=== PATIENT | female | born 1955 | race Caucasian/White ===

== ENCOUNTER → 2018-08-26 | Outpatient (CLI) | payer SELFPAY ==
[~2018-08-26] MED LIST: CEFD300 PO; SACC250C PO
[2018-08-26 17:07] LABS: BASOPHILS ABSOLUTE AUTO 0.04 K/mm3 (0.00-0.23); BASOPHILS PERCENT AUTO 1 % (0-2); EOSINOPHILS ABSOLUTE AUTO 0.21 K/mm3 (0.00-0.68); EOSINOPHILS PERCENT AUTO 3 % (0-6); Hematocrit 41.2 % (33.0-51.0); Hemoglobin 13.9 g/dL (11.5-16.0); IMMATURE GRAN ABSOLUTE AUTO 0.02 K/mm3 (0.00-0.10); IMMATURE GRAN PERCENT AUTO 0 % (0-1); LYMPHOCYTES ABSOLUTE AUTO 2.71 K/mm3 (0.84-5.20); LYMPHOCYTES PERCENT AUTO 43 % (21-46); MONOCYTES ABSOLUTE AUTO 0.51 K/mm3 (0.16-1.47); MONOCYTES PERCENT AUTO 8 % (4-13); Mean Corpuscular HGB 31.8 pg (26.0-34.0); Mean Corpuscular HGB Conc 33.7 g/dL (31.5-36.5); Mean Corpuscular Volume 94 fL (80-100); Mean Platelet Volume 13.1 fL (9.1-12.4); NEUTROPHILS ABSOLUTE AUTO 2.83 K/mm3 (1.96-9.15); NEUTROPHILS PERCENT AUTO 45 % (41-73); Platelet Count 61 K/mm3 (150-400); RDW Coefficient Variation 13.5 % (11.7-14.2); Red Blood Cell Count 4.37 M/mm3 (3.80-5.20); White Blood Cell Count 6.32 K/mm3 (4.00-11.30)
[2018-08-26 17:19] LABS: Anion Gap 7 mmol/L (6-16); Blood Urea Nitrogen 9 mg/dL (8-24); Bun/Creatinine Ratio 10.3 (12.0-20.0); CO2, Blood 31 mmol/L (21-32); Calcium, Blood 8.6 mg/dL (8.5-10.1); Chloride, Blood 101 mmol/L (98-108); Creatinine, Blood 0.87 mg/dL (0.40-1.00); Glomerular Filtration Rate >60 (60-); Glucose, Blood 145 mg/dL (70-99); Potassium, Blood 3.3 mmol/L (3.5-5.5); Sodium, Blood 139 mmol/L (136-145)
[2018-08-26 17:23] LABS: Troponin I <0.015 ng/mL (0.000-0.040)
== END | disposition home or self-care (01) ==
LOC: LAB SHORT 17:00 → LAB EV 17:00
PROVIDERS: Physician Assistant Surgical
DX: R53.83 Other fatigue (principal)
CPT/HCPCS: 80048; 84484; 85025

== ENCOUNTER 2018-10-02 22:42 | Inpatient (IN) | payer SELFPAY ==
[~2018-10-02] VITALS: Ht 175.3 cm; Wt 126.0 kg
[2018-10-02 23:14] LABS: BASOPHILS ABSOLUTE AUTO 0.05 K/mm3 (0.00-0.23); BASOPHILS PERCENT AUTO 0 % (0-2); EOSINOPHILS ABSOLUTE AUTO 0.16 K/mm3 (0.00-0.68); EOSINOPHILS PERCENT AUTO 1 % (0-6); Hematocrit 31.4 % (33.0-51.0); Hemoglobin 9.8 g/dL (11.5-16.0); IMMATURE GRAN ABSOLUTE AUTO 0.18 K/mm3 (0.00-0.10); IMMATURE GRAN PERCENT AUTO 2 % (0-1); LYMPHOCYTES ABSOLUTE AUTO 2.66 K/mm3 (0.84-5.20); LYMPHOCYTES PERCENT AUTO 22 % (21-46); MONOCYTES ABSOLUTE AUTO 0.95 K/mm3 (0.16-1.47); MONOCYTES PERCENT AUTO 8 % (4-13); Mean Corpuscular HGB 31.8 pg (26.0-34.0); Mean Corpuscular HGB Conc 31.2 g/dL (31.5-36.5); Mean Corpuscular Volume 102 fL (80-100); Mean Platelet Volume 12.4 fL (9.1-12.4); NEUTROPHILS ABSOLUTE AUTO 8.09 K/mm3 (1.96-9.15); NEUTROPHILS PERCENT AUTO 67 % (41-73); Platelet Count 81 K/mm3 (150-400); RDW Coefficient Variation 14.3 % (11.7-14.2); RDW Standard Deviation 53.4 fL (35.1-46.3); Red Blood Cell Count 3.08 M/mm3 (3.80-5.20); White Blood Cell Count 12.09 K/mm3 (4.00-11.30)
[2018-10-02 23:29] LABS: International Normalized Ratio 1.42; Prothrombin Time Results 14.6 Sec (9.7-11.5)
[2018-10-02 23:32] LABS: Alanine Aminotransfer (ALT/SGP 20 U/L (12-78); Albumin, Blood 1.9 g/dL (3.4-5.0); Albumin/Globulin Ratio 0.6 (0.8-1.8); Alk Phos 78 U/L (50-136); Anion Gap 7 mmol/L (6-16); Aspartate Aminotrans (AST/SGOT 39 U/L (12-37); Bilirubin, Total 1.6 mg/dL (0.1-1.0); Blood Urea Nitrogen 9 mg/dL (8-24); Bun/Creatinine Ratio 13.3 (12.0-20.0); CO2, Blood 29 mmol/L (21-32); Calcium, Blood 7.2 mg/dL (8.5-10.1); Chloride, Blood 107 mmol/L (98-108); Creatinine, Blood 0.68 mg/dL (0.40-1.00); Globulin, Blood 3.3 g/dL (2.2-4.0); Glomerular Filtration Rate >60 (60-); Glucose, Blood 162 mg/dL (70-99); Potassium, Blood 4.6 mmol/L (3.5-5.5); Sodium, Blood 143 mmol/L (136-145); Total Protein, Blood 5.2 g/dL (6.4-8.2)
[2018-10-03] MEDS ORDERED: Prilosec Otc20 MG PO (01:01)
--- NOTE | 2018-10-03 04:55 | NUR ---
unsure where blood was coming from, placed two hats in comode, front was macho urine, back dark red/black 200cc
[2018-10-03 05:04] LABS: BASOPHILS ABSOLUTE AUTO 0.03 K/mm3 (0.00-0.23); BASOPHILS PERCENT AUTO 0 % (0-2); EOSINOPHILS ABSOLUTE AUTO 0.03 K/mm3 (0.00-0.68); EOSINOPHILS PERCENT AUTO 0 % (0-6); Hematocrit 27.5 % (33.0-51.0); Hemoglobin 8.6 g/dL (11.5-16.0); IMMATURE GRAN ABSOLUTE AUTO 0.14 K/mm3 (0.00-0.10); IMMATURE GRAN PERCENT AUTO 1 % (0-1); LYMPHOCYTES ABSOLUTE AUTO 1.64 K/mm3 (0.84-5.20); LYMPHOCYTES PERCENT AUTO 17 % (21-46); MONOCYTES ABSOLUTE AUTO 0.65 K/mm3 (0.16-1.47); MONOCYTES PERCENT AUTO 7 % (4-13); Mean Corpuscular HGB 31.9 pg (26.0-34.0); Mean Corpuscular HGB Conc 31.3 g/dL (31.5-36.5); Mean Corpuscular Volume 102 fL (80-100); Mean Platelet Volume 12.8 fL (9.1-12.4); NEUTROPHILS ABSOLUTE AUTO 7.22 K/mm3 (1.96-9.15); NEUTROPHILS PERCENT AUTO 74 % (41-73); Platelet Count 57 K/mm3 (150-400); RDW Coefficient Variation 14.4 % (11.7-14.2); RDW Standard Deviation 53.4 fL (35.1-46.3); White Blood Cell Count 9.71 K/mm3 (4.00-11.30)
--- NOTE | 2018-10-03 07:03 | NUR ---
walking rounds with day shift nurse, call light in reach, a+o, able to make needs known, room air, saline locked, able to transfer to bathroom with standby assist, two mostly bloody stools, states she is feeling weak, checked vitials
--- NOTE | 2018-10-03 07:52 | NUR ---
ASSUMED CARE OF PT- BEDSIDE REPORT COMPLETE WITH MIGUEL ANGEL HECK. PER RPOET PT IS 1 ASSIST TO THE BATHROOM. PT HAS A GI BLEED. GI CONSULT CALLED PER REPORT FROM NIGHT RN. PT ALERT AND ORIENTED. SPOKE TO PT AFTER REPORT AND SHE REPORTS FREQUENT FALLS AT HOME STATED HER LEFT ELBOW HAS BEEN PAINFUL SINCE SHE HAD A FALL AT HOME. PT HAS TWO AC IVS BOTH PATENT ONE SL AND ONE RUNNING NS CURRENTLY.
--- NOTE | 2018-10-03 08:04 | NUR ---
PT HAD A BM, PER REPORT FROM MOTEL MANAGER STOOL WAS BLACK AND LOOKED LIKE COFFEE GROUNDS.
--- NOTE | 2018-10-03 12:16 | NUR ---
GI DOCTOR IN TO SEE THE PT. STARTING PROTONIX AND SANDOSTATIN DRIPS. PT ALREADY HAS 2 IV'S. PT TO REMAIN NPO AT THIS TIME.
[2018-10-03 14:00] LABS: Hematocrit 29.8 % (33.0-51.0); Hemoglobin 9.2 g/dL (11.5-16.0)
[2018-10-03 15:47] LABS: Influenza A Negative (NEGATIVE); Influenza B Negative (NEGATIVE)
[2018-10-03 16:14] LABS: Hematocrit 26.6 % (33.0-51.0); Hemoglobin 8.7 g/dL (11.5-16.0)
--- NOTE | 2018-10-03 17:25 | NUR ---
TRANSFER NOTE- PT TRANSFERED TO PCU AFTER GOING TO DAY SURGERY. DAY SURGERY RN CALLED AND STATED PT NOT STABLE TO GO THROUGH PROCEDURE AT THIS TIME. DAY SURGERY RETURNED PT TO MEDICAL FLOOR, NOTIFIED OF THE ISSUES AND TRANSFER ORDER RECIEVED. CALLED REPORT TO MIGUEL ANGEL RIBEIRO IN PCU. OCTREOTIDE, LEVOFLOXACIN, PROTONIX AND IVF ALL RUNNING. PT TAKEN DOWN BY RN AND FIBREGLASS GUN HAND, FLU SWAB COMPLETE PRIOR TO TRANSFER. PT ALERT BUT BECOMING FORGETFUL AT THE TIME OF TRANSFER. LAST VITALS SHOW O2 SATS IN THE HIGH 80'S, PLACED PT ON 2L O2 NC, O2 SATS 96% 30 MINUTES AFTER O2 PLACED. PT STATED THE O2 MADE HER FEEL BETTER. CHEST XRAY DONE PRIOR TO TRANSFER. PT SO PRESENT FOR TRANSFER AND IS AWARE.
--- NOTE | 2018-10-03 17:33 | NUR ---
SPOKE TO GI DOCTOR IN THE HALLWAY PT WAS TRANSFERING OUT NO PLANS TO DO PROCEDURE AT THIS TIME NEW ORDER FOR CLEAR LIQUID DIET PLACED.
--- NOTE | 2018-10-03 17:46 | NUR ---
CALLED DR SIMMS. TEMP 103.2. ICED. NOW DOWN TO 102.7. BP 104/77 P 106. ORDERS OKAY PO TYLENOL. AND GIVE 500 BOLUS N/C
--- NOTE | 2018-10-03 18:44 | NUR ---
PT PLEASANT SINCE TRANSFER TO FLOOR. BOLUS ORDERED AND BEING GIVEN. TEMP UP TO 103.2. TYLENOL GIVEN AND ICE PACKS, NOW IS 102.1 AT 1845. WAS NOTIFIED. PT WAS RETURNED TO 3RD FLOOR FROM ATTEMPTED GI. IN DISTRESS. MOVED HERE THIS AFT. DENIES PAIN AT THIS TIME. BED IN LOW APOSITION, CALL LITE IN REACH, CALLS APPROP
[2018-10-03 22:15] LABS: Hematocrit 24.2 % (33.0-51.0); Hemoglobin 7.6 g/dL (11.5-16.0)
[2018-10-03 23:40] LABS: Source, Urine Clean Catch
[2018-10-03 23:45] LABS: Appearance, Urine Clear (Clear); Blood, Urine 5+ (Neg); Color, Urine Amber (P-Yellow); Glucose Qualitative, Urine Neg (Neg); Ketones, Urine 1+ (Neg); Leukocyte Esterase, Urine 1+ (Neg); Nitrite, Urine Neg (Neg); Protein, Urine 2+ (Neg); Specific Gravity, Urine 1.025 (1.003-1.022); Urobilinogen, Urine 1+ (Normal)
[2018-10-03 23:49] LABS: Bilirubin, Urine 1+ (Neg)
[2018-10-03 23:51] LABS: Bacteria Many /hpf; Hyaline Casts 25-50 /lpf (0-2); Mucus Light (0-Heavy); Red Blood Cells, Urine 0-2 /hpf (0-2); Squamous Epithelial Cells Many /hpf (Few)
--- NOTE | 2018-10-04 00:10 | NUR ---
UPDATE DR CONNORS CALLED DUE TO CHANGES IN LAB VALUES AND MINIMAL URINE OUTPUT. NEW ORDERS PROVIDED. PT ALERT AND ORIENTED. BP STABLE AT THIS TIME. 02 SATS >92% ON 2L NC. WILL CONTINUE TO MONITOR.
[2018-10-04 04:19] LABS: Hematocrit 25.5 % (33.0-51.0); Hemoglobin 7.9 g/dL (11.5-16.0)
[2018-10-04 04:22] LABS: BASOPHILS ABSOLUTE AUTO 0.05 K/mm3 (0.00-0.23); BASOPHILS PERCENT AUTO 0 % (0-2); EOSINOPHILS ABSOLUTE AUTO 0.02 K/mm3 (0.00-0.68); EOSINOPHILS PERCENT AUTO 0 % (0-6); IMMATURE GRAN PERCENT AUTO 1 % (0-1); LYMPHOCYTES ABSOLUTE AUTO 2.23 K/mm3 (0.84-5.20); LYMPHOCYTES PERCENT AUTO 8 % (21-46); MONOCYTES ABSOLUTE AUTO 1.08 K/mm3 (0.16-1.47); MONOCYTES PERCENT AUTO 4 % (4-13); Mean Corpuscular HGB 32.3 pg (26.0-34.0); Mean Corpuscular HGB Conc 30.8 g/dL (31.5-36.5); Mean Platelet Volume 12.6 fL (9.1-12.4); NEUTROPHILS ABSOLUTE AUTO 23.46 K/mm3 (1.96-9.15); NEUTROPHILS PERCENT AUTO 87 % (41-73); NRBC ABSOLUTE 0.02 K/mm3 (0.00-0.02); NRBC Auto 0.1 /100 WBC (0.0-0.2); Platelet Count 54 K/mm3 (150-400); RDW Coefficient Variation 14.6 % (11.7-14.2); RDW Standard Deviation 56.4 fL (35.1-46.3); Red Blood Cell Count 2.48 M/mm3 (3.80-5.20); White Blood Cell Count 27.04 K/mm3 (4.00-11.30)
[2018-10-04 04:23] LABS: Mean Corpuscular Volume 105 fL (80-100)
[2018-10-04 04:45] LABS: Magnesium, Blood 1.9 mg/dL (1.6-2.4)
[2018-10-04 04:50] LABS: Alanine Aminotransfer (ALT/SGP 18 U/L (12-78); Albumin, Blood 1.9 g/dL (3.4-5.0); Albumin/Globulin Ratio 0.6 (0.8-1.8); Alk Phos 55 U/L (50-136); Anion Gap 4 mmol/L (6-16); Aspartate Aminotrans (AST/SGOT 42 U/L (12-37); Bilirubin, Total 1.8 mg/dL (0.1-1.0); Blood Urea Nitrogen 19 mg/dL (8-24); CO2, Blood 26 mmol/L (21-32); Calcium, Blood 6.8 mg/dL (8.5-10.1); Chloride, Blood 112 mmol/L (98-108); Creatinine, Blood 0.83 mg/dL (0.40-1.00); Globulin, Blood 3.1 g/dL (2.2-4.0); Glomerular Filtration Rate >60 (60-); Glucose, Blood 152 mg/dL (70-99); Potassium, Blood 4.8 mmol/L (3.5-5.5); Sodium, Blood 142 mmol/L (136-145)
--- NOTE | 2018-10-04 05:21 | NUR ---
SHIFT SUMMARY PT ALERT AND ORIENTED. VS STABLE AT THIS TIME. BP IMPROVED SEE VS. O2 SATS >92% ON 1L VIA NC. PT HAD TWO COFFEE GROUND BM THIS SHIFT. PT NO LONGER FEBRILE. NS, OCTREOTIDE, AND PROTONIX INF PER ORDERS. MORNING LABS TRENDING IN THE EXPECTED DIRECTION. NO OTHER CHANGES SINCE INITIAL ASSESSMENT. PT RESTING AT THIS TIME WITH OBVIOUS CHEST RISE AND FALL. CALL LIGHT IN REACH. WILL CONTINUE TO MONITOR AND REPORT TO ONCOMING RN.
--- NOTE | 2018-10-04 09:39 | NUR ---
PT TO CT
[2018-10-04 10:20] LABS: Hemoglobin 7.1 g/dL (11.5-16.0)
--- NOTE | 2018-10-04 13:02 | NUR ---
Echocardiogram completed. Stat overread requested.
--- NOTE | 2018-10-04 17:59 | NUR ---
SUMMARY PT'S HGB 7.1 THIS SHIFT. ORDERS OBTAINED TO TRANSFUSE 1 UNIT PRBCS. PT PASSED SMALL AMT STOOL THIS SHIFT W/ SCANT AMT APPEARANCE BLOOD. NEW ORDERS FOR CARDIOLOGY AND INFECTIOUS DISEASE CONSULTS. PT PLEASANT AND COOPERATIVE. VSS. CALL LIGHT IN REACH.
--- NOTE | 2018-10-04 20:00 | NUR ---
PM NOTE. ASSUMED CARE OF PT APROX 1900. PT IS A&Ox4 PLEASENT AND COOPERATIVE WITH CARE. PT WAS ADMITTED DUE TO GI BLEED AND SEPSIS. PT HAS POSITIVE BLOOD CULTURES (SEE LABS). PT IS ORDERED TO GET 2 UNITS OF PRBCS, FIRST UNIT IS CURRENTLY TRANSFUSING. TELE INTACT, NSR IN THE 80'S PER NOC ANALYST. 3-4+ PITTING EDEMA NOTED TO THE PT'T BLE, PT HAS GENERALIZED EDEMA TO HER BUE. PT'S BP 133/70. L/S CLEAR T/O. BT PRESENT AND HYPERACTIVE, ABD IS SOFT AND NONTENDER TO PALP. PT IS CURRENTLY FEBRILE AT 101.0, PT WAS GIVEN TYLENOL PER EMAR WILL CONTINUE TO MONITOR. CALL LIGHT IN REACH, BED IS LOCKED AND LOW WILL CONTINUE TO MONITOR.
--- NOTE | 2018-10-05 03:10 | NUR ---
PT UPTDATE... 2ND UNIT OF BLOOD STARTED PER ORDERS, PT HAS HAD MULTIPLE IV'S INFLITRATE AND A NEW SITE WAS NEEDED, PT HAS VERY FRAGILE AND DEEP VEINS AND REQUIRED A SONOSITE TO BE USED TO OBTAIN IV ACCESS. CALL LIGHT IN REACH, BED IS LOCKED AND LOW WILL CONTINUE TO MONITOR
[2018-10-05 04:00] LABS: BASOPHILS ABSOLUTE AUTO 0.08 K/mm3 (0.00-0.23); BASOPHILS PERCENT AUTO 0 % (0-2); EOSINOPHILS PERCENT AUTO 2 % (0-6); Hematocrit 27.8 % (33.0-51.0); Hemoglobin 8.8 g/dL (11.5-16.0); IMMATURE GRAN PERCENT AUTO 2 % (0-1); LYMPHOCYTES ABSOLUTE AUTO 2.93 K/mm3 (0.84-5.20); LYMPHOCYTES PERCENT AUTO 16 % (21-46); MONOCYTES ABSOLUTE AUTO 1.32 K/mm3 (0.16-1.47); MONOCYTES PERCENT AUTO 7 % (4-13); Mean Corpuscular HGB 32.1 pg (26.0-34.0); Mean Corpuscular HGB Conc 31.7 g/dL (31.5-36.5); NEUTROPHILS ABSOLUTE AUTO 12.97 K/mm3 (1.96-9.15); NEUTROPHILS PERCENT AUTO 72 % (41-73); NRBC ABSOLUTE 0.06 K/mm3 (0.00-0.02); NRBC Auto 0.3 /100 WBC (0.0-0.2); Platelet Count 54 K/mm3 (150-400); RDW Coefficient Variation 16.2 % (11.7-14.2); RDW Standard Deviation 59.8 fL (35.1-46.3); Red Blood Cell Count 2.74 M/mm3 (3.80-5.20)
[2018-10-05 04:03] LABS: Mean Corpuscular Volume 102 fL (80-100); Mean Platelet Volume 13.2 fL (9.1-12.4)
[2018-10-05 04:12] LABS: International Normalized Ratio 1.47
[2018-10-05 04:18] LABS: Alanine Aminotransfer (ALT/SGP 22 U/L (12-78); Albumin, Blood 2.1 g/dL (3.4-5.0); Albumin/Globulin Ratio 0.6 (0.8-1.8); Alk Phos 57 U/L (50-136); Anion Gap 4 mmol/L (6-16); Aspartate Aminotrans (AST/SGOT 48 U/L (12-37); Bilirubin, Total 2.1 mg/dL (0.1-1.0); Blood Urea Nitrogen 15 mg/dL (8-24); Bun/Creatinine Ratio 18.7 (12.0-20.0); CO2, Blood 27 mmol/L (21-32); Calcium, Blood 6.9 mg/dL (8.5-10.1); Chloride, Blood 111 mmol/L (98-108); Globulin, Blood 3.4 g/dL (2.2-4.0); Glomerular Filtration Rate >60 (60-); Glucose, Blood 107 mg/dL (70-99); Potassium, Blood 4.3 mmol/L (3.5-5.5); Sodium, Blood 142 mmol/L (136-145); Total Protein, Blood 5.5 g/dL (6.4-8.2)
--- NOTE | 2018-10-05 07:32 | NUR ---
SHIFT SUMMARY. PT'S IV SITE FOR THE PRBCS INFILTRATED, IV WAS D/C'D WNL. PT HAS 2 OTHER IV SITES THAT ARE RUNNING CONINUOUS IV PROTONIX AND OCTEOTRIED. PROVIDER WAS CALLED AFTER PT'S H&H LABS WERE OBTAINED, PROVIDER D/C'D 2ND UNIT OF BLOOD FOR NOW. ORDERS FOR PICC LINE OBTAINED FOR THIS AM. PT HAS BEEN NPO SINCE MIDNIGHT FOR EGD AND POSSIBLE [place]OD[place] TODAY. CALL LIGHT IN REACH, BED IS LOCKED AND LOW WILL CONTINUE TO MONITOR UNTIL REPORT IS GIVEN TO ONCOMING RN.
--- NOTE | 2018-10-05 12:00 | NUR ---
PT TAKEN BY DAY SURGERY RN. WILL AWAIT RETURN.
--- NOTE | 2018-10-05 12:31 | NUR ---
PT TRANSPORTED TO [facility]. AGREES WITH PLANNED PROCEDURE. DR. RADER IN TO SEE PT AND OBTAIN CONSENT. LUNG SOUNDS CLEAR.
--- NOTE | 2018-10-05 13:41 | NUR ---
10/05/18 1341 Benito Hutchins PATIENT DETERMINED TO BE ASA APPROPRIATE FOR PROPOFOL SEDATION PRIOR TO START OF PROCEDURE BY . 3-LEAD EKG REVIEWED WITH PHYSICIAN PRIOR TO START OF PROCEDURE.PATIENT CONFIRMS NPO STATUS AND AGREES WITH SCHEDULED PROCEDURE.History, Chart, Medications and Allergies reviewed before start of procedure.MONITOR INTACT WITH CONTINUOUS PULSE OXIMETRY AND INTERMITTENT BP.O2 VIA N/C INTACT THROUGHOUT SEDATION/PROCEDURE.Bite Block Placed
--- NOTE | 2018-10-05 17:24 | NUR ---
REPORT CALLED TO SHANA MICHELLE AT [facility]. PT TRANSPORTED VIA EMS.
[2018-10-06 15:08] LABS: HCV LOG10 5.976 (.); HEPATITIS C QUANTITATION 946000 IU/mL (.)
[2018-10-09 06:15] LABS: HEPATITIS C GENOTYPE 3 (.)
== END 2018-10-05 17:49 | disposition short-term general hospital (02) | DRG 871 ==
LOC: ER 22:42 → MEDS 22:43 → PCU 22:43 → MEDS 22:43 → PCU 10-03 15:19
PROVIDERS: Emergency Medicine; Internal Medicine; Student in an Organized Health Care Education/Training Program; ADMIT Hospitalist
PROC: 30233N1 Transfusion of Nonautologous Red Blood Cells into Peripheral Vein, Percutaneous Approach (ICD-10-PCS; principal; 2018-10-04)
PROC: 0DJD8ZZ Inspection of Lower Intestinal Tract, Via Natural or Artificial Opening Endoscopic (ICD-10-PCS; 2018-10-05)
PROC: 30233N1 Transfusion of Nonautologous Red Blood Cells into Peripheral Vein, Percutaneous Approach (ICD-10-PCS; 2018-10-05)
PROC: 05HY33Z Insertion of Infusion Device into Upper Vein, Percutaneous Approach (ICD-10-PCS; 2018-10-05)
PROC: 0W3P8ZZ Control Bleeding in Gastrointestinal Tract, Via Natural or Artificial Opening Endoscopic (ICD-10-PCS; 2018-10-05 13:30)
PROC: 3E0G8GC Introduction of Other Therapeutic Substance into Upper GI, Via Natural or Artificial Opening Endoscopic (ICD-10-PCS; 2018-10-05 13:30)
PROC: 0DB68ZX Excision of Stomach, Via Natural or Artificial Opening Endoscopic, Diagnostic (ICD-10-PCS; 2018-10-05 13:30)
DX: A41.1 Sepsis due to other specified staphylococcus (principal); I33.0 Acute and subacute infective endocarditis; K25.4 Chronic or unspecified gastric ulcer with hemorrhage; E87.2 Acidosis; L03.115 Cellulitis of right lower limb; D69.6 Thrombocytopenia, unspecified; K74.60 Unspecified cirrhosis of liver; D50.0 Iron deficiency anemia secondary to blood loss (chronic); R55 Syncope and collapse; R63.4 Abnormal weight loss; I35.1 Nonrheumatic aortic (valve) insufficiency; B18.2 Chronic viral hepatitis C; R06.00 Dyspnea, unspecified; E66.9 Obesity, unspecified; B95.8 Unspecified staphylococcus as the cause of diseases classified elsewhere; D72.829 Elevated white blood cell count, unspecified; K21.9 Gastro-esophageal reflux disease without esophagitis; R01.1 Cardiac murmur, unspecified; I87.321 Chronic venous hypertension (idiopathic) with inflammation of right lower extremity; F17.210 Nicotine dependence, cigarettes, uncomplicated; Z68.39 Body mass index [BMI] 39.0-39.9, adult; Z85.828 Personal history of other malignant neoplasm of skin; Z88.6 Allergy status to analgesic agent; Z88.2 Allergy status to sulfonamides; Z88.0 Allergy status to penicillin
CPT/HCPCS: 36415; 36430; 71045; 73701; 76705; 80053; 81001; 83605; 83735; 85014; 85018; 85025; 85610; 86850; 86900; 86901; 86920; 87040; 87077; 87086; 87185; 87186; 87522; 87804; 87902; 88305; 88342; 93005; 93010; 93306; 93312; 93325; 96361; 96374; 99285-25; C1751; C9113; J1940; J1956; J2405; J3370; J7030; J7040; J7050; J7120; P9016; Q9967

== ENCOUNTER 2019-02-28 06:50 | Inpatient (IN) | payer SELFPAY ==
[~2019-02-28] VITALS: Ht 167.6 cm; Wt 124.0 kg
[~2019-02-28 06:50] MED LIST changes: +Prilosec Otc20 MG PO
[2019-02-28] MEDS ORDERED: FURO20 PO (07:22)
[2019-02-28 07:50] LABS: Alanine Aminotransfer (ALT/SGP 18 U/L (12-78); Albumin/Globulin Ratio 0.6 (0.8-1.8); Alk Phos 80 U/L (50-136); Anion Gap 10 mmol/L (6-16); Aspartate Aminotrans (AST/SGOT 44 U/L (12-37); Bilirubin, Total 3.9 mg/dL (0.1-1.0); Blood Urea Nitrogen 29 mg/dL (8-24); Bun/Creatinine Ratio 33.4 (12.0-20.0); CO2, Blood 22 mmol/L (21-32); Chloride, Blood 107 mmol/L (98-108); Creatinine, Blood 0.87 mg/dL (0.40-1.00); Globulin, Blood 3.5 g/dL (2.2-4.0); Glomerular Filtration Rate >60 (60-); Glucose, Blood 82 mg/dL (70-99); Potassium, Blood 3.9 mmol/L (3.5-5.5); Sodium, Blood 139 mmol/L (136-145); Total Protein, Blood 5.5 g/dL (6.4-8.2)
[2019-02-28 08:04] LABS: Source, Urine Catheter
[2019-02-28 08:10] LABS: BASOPHILS ABSOLUTE AUTO 0.04 K/mm3 (0.00-0.23); BASOPHILS PERCENT AUTO 0 % (0-2); EOSINOPHILS ABSOLUTE AUTO 0.01 K/mm3 (0.00-0.68); EOSINOPHILS PERCENT AUTO 0 % (0-6); Hematocrit 28.1 % (33.0-51.0); Hemoglobin 9.2 g/dL (11.5-16.0); IMMATURE GRAN ABSOLUTE AUTO 0.24 K/mm3 (0.00-0.10); IMMATURE GRAN PERCENT AUTO 2 % (0-1); LYMPHOCYTES PERCENT AUTO 6 % (21-46); MONOCYTES ABSOLUTE AUTO 0.44 K/mm3 (0.16-1.47); MONOCYTES PERCENT AUTO 3 % (4-13); Mean Corpuscular HGB 30.9 pg (26.0-34.0); Mean Corpuscular HGB Conc 32.7 g/dL (31.5-36.5); Mean Corpuscular Volume 94 fL (80-100); NEUTROPHILS ABSOLUTE AUTO 12.65 K/mm3 (1.96-9.15); NEUTROPHILS PERCENT AUTO 89 % (41-73); NRBC ABSOLUTE 0.06 K/mm3 (0.00-0.02); NRBC Auto 0.4 /100 WBC (0.0-0.2); RDW Coefficient Variation 19.3 % (11.7-14.2); RDW Standard Deviation 65.4 fL (35.1-46.3); Red Blood Cell Count 2.98 M/mm3 (3.80-5.20); White Blood Cell Count 14.28 K/mm3 (4.00-11.30)
[2019-02-28 08:13] LABS: Blood, Urine 4+ (Neg); Glucose Qualitative, Urine Neg (Neg); Ketones, Urine 1+ (Neg); Leukocyte Esterase, Urine 1+ (Neg); Nitrite, Urine Neg (Neg); Protein, Urine 2+ (Neg); Specific Gravity, Urine 1.015 (1.003-1.022); Urobilinogen, Urine 2+ (Normal)
[2019-02-28 08:23] LABS: International Normalized Ratio 1.7; Prothrombin Time Results 17.2 Sec (9.7-11.5)
[2019-02-28 08:28] LABS: Platelet Count 29 K/mm3 (150-400)
[2019-02-28 08:48] LABS: Appearance, Urine Clear (Clear); Color, Urine Amber (P-Yellow)
[2019-02-28 08:49] LABS: Bilirubin, Urine 1+ (Neg)
[2019-02-28 08:53] LABS: Bacteria Not Seen /hpf; Squamous Epithelial Cells Not Seen /hpf (Few)
[2019-02-28 08:54] LABS: Amorphous Heavy (0-Heavy); Mucus Heavy (0-Heavy)
[2019-02-28 12:29] LABS: Hematocrit 24.1 % (33.0-51.0); Hemoglobin 7.7 g/dL (11.5-16.0)
[2019-02-28 13:36] LABS: Source, Urine Catheter
[2019-02-28 13:44] LABS: Blood, Urine 2+ (Neg); Glucose Qualitative, Urine Neg (Neg); Ketones, Urine 2+ (Neg); Leukocyte Esterase, Urine 1+ (Neg); Nitrite, Urine Pos (Neg); Protein, Urine 2+ (Neg); Specific Gravity, Urine 1.015 (1.003-1.022); Urobilinogen, Urine 2+ (Normal)
[2019-02-28 14:04] LABS: Bilirubin, Urine 2+ (Neg)
[2019-02-28 14:05] LABS: Appearance, Urine Hazy (Clear); Color, Urine Amber (P-Yellow)
[2019-02-28 14:11] LABS: Red Blood Cells, Urine 0-2 /hpf (0-2); Squamous Epithelial Cells Mod /hpf (Few)
[2019-02-28 14:13] LABS: Bacteria Mod /hpf
[2019-02-28 14:14] LABS: Hyaline Casts 0-2 /lpf (0-2); Mucus Mod (0-Heavy)
--- NOTE | 2019-02-28 15:13 | NUR ---
ARRIVAL TO ICU 1140 - PT ARRIVES TO ICU AT THIS TIME FROM ED. SHE IS A/O X 3, CALM AND COOPERATIVE. REQUESTING WATER AND FOOD; BUT INFORMED PT THAT SHE CANNOT HAVE ANYTHING TO DRINK AT THIS TIME. MD GARCIA BEDSIDE SHORTLY AFTER ARRIVAL TO ICU AND ASKED THAT 2L NC BE APPLIED PT BECOMES OCCASSIONALLY SHORT OF BREATH WHEN TALKING; SPO2 97% ON RA. LUNG SOUNDS CLEAR. 3RD NS BOLUS FINISHED INFUSING UPON ARRIVAL. PROTONIX GTT REMAINS INFUSING. PT PALE IN COLOR. NO SIGNS OF ACTIVE BLEEDING. OSORIO CATH INSERTED AND UA SENT TO LAB. MD STOCK CONSULTED. SBP 80-90S, WITH MAP 60-65. FAMILY BEDSIDE. XRAY OBTAINED OF R WRIST. WILL CONTINUE TO MONITOR.
--- NOTE | 2019-02-28 15:57 | NUR ---
REASSESSMENT PT REMAINS SITTING IN BED AND IN NAD AT THIS TIME. VSS. NSR, HR 70S. MAP REMAINS LOW WITH MAP 60-65; MD AWARE. NS MIV INFUSING AT 150 ML/HR PER ORDER. PROTONIX GTT INFUSING AT 10 ML/HR PER ORDER. ABDOMINAL AND BLE ULTRASOUND COMPLETED. PT ACCEPTED BY [facility] FOR TRANSFER, AWAITING BED ASSIGNMENT AT THIS TIME. REMAINS A/O X 3. WILL CONTINUE TO MONITOR.
[2019-02-28 16:24] LABS: Hemoglobin 8.1 g/dL (11.5-16.0)
--- NOTE | 2019-02-28 17:09 | NUR ---
TRANSFER REPORT CALLED TO YULY AT [facility]. PT TRANSPORTED BY [facility] AND LEFT ICU AT 1710. PROTONIX GTT AND MIV AT 150 INFUSING AT TRANSPORT. FAMILY AWARE.
== END 2019-02-28 17:09 | disposition short-term general hospital (02) | DRG 871 ==
LOC: ER 06:50 → PCU 09:09 → ICUE 10:58
PROVIDERS: Emergency Medicine; Internal Medicine Critical Care Medicine; ADMIT Internal Medicine
DX: A41.9 Sepsis, unspecified organism (principal); R65.21 Severe sepsis with septic shock; I33.0 Acute and subacute infective endocarditis; K27.4 Chronic or unspecified peptic ulcer, site unspecified, with hemorrhage; B19.20 Unspecified viral hepatitis C without hepatic coma; F17.210 Nicotine dependence, cigarettes, uncomplicated; K70.31 Alcoholic cirrhosis of liver with ascites; I35.1 Nonrheumatic aortic (valve) insufficiency; E66.9 Obesity, unspecified; Z68.35 Body mass index [BMI] 35.0-35.9, adult; D69.6 Thrombocytopenia, unspecified
CPT/HCPCS: 36415; 51702; 71045; 73110; 76705; 80053; 81001; 82272; 83605; 84145; 85014; 85018; 85025; 85610; 85730; 86850; 86900; 86901; 87040; 87077; 87086; 87186; 93005; 93010; 93308; 93321; 93970; 96361; 96365-59; 96366; 96367; 96368; 96376-59; 99285-25; A9270; C9113; J1956; J3370; J7030; J7050; P9612